=== PATIENT | female | born 1990 | race Caucasian/White ===

== ENCOUNTER 2017-03-05 23:54 | Emergency (ER) | payer OTHER ==
[~2017-03-05] VITALS: Ht 175.3 cm; Wt 81.2 kg
--- NOTE | ~2017-03-05 | CR7 ---
[facility] [place] [facility] TEXT RESULTS PATIENT: LIZETH GUERRERO LOCATION: SED : 90 UNIT #: [id number] AGE: [address]: Antoine Ramirez MD SEX: F ORDER DR: [id number] [address] [address] [id number] E MR#: [id number] Acc #: [id number] NAME: LIZETH GUERRERO. : 1990 SEX: F STUDY DATE/TIME: 03/06/2017 1:09 UNIT: SED ROOM: STUDY DESCRIPTION: CR Abdomen Single AP View Attending Physician: Antoine Ramirez M.D. Ordering Physician: Antoine Ramirez M.D. MEDICAL IMAGING REPORT This report is preliminary unless electronic signature is present. EXAM AP abdomen. Date 03/06/2017. HISTORY 26-year-old female with complaints of abdominal pain which started 2 days ago. Hepatitis C. COMPARISON None. FINDINGS There is mild ascending colonic stool burden. There is moderate gaseous distension of the transverse and splenic flexures of the colon. No abnormal small bowel dilation is seen. Calcified phleboliths are present bilaterally in the pelvis. Intrauterine device is in place. The imaged portion the lung bases appear clear. No acute osseous abnormalities are identified. IMPRESSION 1. Moderate gaseous distension of the transverse and splenic flexures of the colon. Mild ascending colonic stool burden. 2. No evidence of bowel obstruction or acute abdominal abnormality. 3. Intrauterine device in place. Dictated by... Latonya Kincaid M.D. THIS IS AN ELECTRONICALLY VERIFIED REPORT Latonya Kincaid M.D. at 03/06/2017 9:52 PM LLH/gz [facility] A [place] [facility] RADIOLOGY TEXT RESULTS PATIENT: LIZETH GUERRERO LOCATION: SED : 90 UNIT #: [id number] AGE: [address]: Antoine Ramirez MD SEX: F ORDER DR: TD: 03/06/2017 09:59 JOB #: [id number] MEDICAL IMAGING REPORT Page 1 of 1
[~2017-03-05 23:54] MED LIST: ATIVAN2 MG PO; CLEOCIN HCL300 M1 PO; FLEXERIL10 M1 PO; NO MEDICATIONS; PAXIL PO; VOLTAREN75 MG PO; [UNRECOGNIZED DRUG - REMARK]
[2017-03-06] MEDS ORDERED: SEROQUEL100 MG PO (00:18)
[2017-03-06] MEDS ORDERED: VISTARIL PO (00:18)
[2017-03-06 02:03] LABS: URINE SOURCE CLEAN CATCH
[2017-03-06 02:06] LABS: URINE APPEARANCE CLEAR; URINE BILIRUBIN NEG (NEG); URINE BLOOD NEG (NEG); URINE COLOR YELLOW; URINE GLUCOSE NEG (NORM); URINE KETONE NEG (NEG); URINE LEUKOCYTE ESTERASE 1+ (NEG); URINE NITRATE NEG (NEG); URINE PH 5.5 (5-8); URINE PROTEIN NEG (NEG)
[2017-03-06 02:09] LABS: MICRO INDICATED? YES
[2017-03-06 02:10] LABS: URINE BACTERIA 1+ (NEG); URINE MUCUS PRESENT; URINE SQUAMOUS EPITHELIAL CELL FEW /[HPF]; URINE TRANSITIONAL EPI CELLS FEW /[HPF]
== END 2017-03-06 02:54 | disposition home or self-care (01) ==
LOC: SED 23:54
PROVIDERS: Emergency Medicine
DX: R10.84 Generalized abdominal pain (principal); F17.210 Nicotine dependence, cigarettes, uncomplicated; Z79.899 Other long term (current) drug therapy; Z91.048 Other nonmedicinal substance allergy status
CPT/HCPCS: 74000; 81003; 84703; 99284

== ENCOUNTER 2017-03-10 00:15 | Emergency (ER) | payer OTHER ==
[~2017-03-10] VITALS: Ht 175.3 cm; Wt 81.2 kg
--- NOTE | ~2017-03-10 | CT2 ---
[facility] A Service of [facility] & [facility] RADIOLOGY TEXT RESULTS PATIENT: LIZETH GUERRERO LOCATION: [facility] : 90 UNIT #: [id number] AGE: [address]: Angel Luis Pena MD SEX: F ORDER DR: [id number] [facility] [address] [place], [place] [address] [id number] E MR#: [id number] Acc #: [id number] NAME: LIZETH GUERRERO. : 1990 SEX: F STUDY DATE/TIME: 03/10/2017 2:48 UNIT: [facility] ROOM: STUDY DESCRIPTION: CT Abd and Pelv W Cont Attending Physician: Angel Luis Pena M.D. Ordering Physician: Angel Luis Pena M.D. Primary Care Physician: Primary Care Physician No MEDICAL IMAGING REPORT This report is preliminary unless electronic signature is present EXAM CT abdomen and pelvis with contrast 03/10/2017 HISTORY 26-year-old female in the ED complaining of 1-week history of left side chest pain and left side abdomen pain, now worsening. Constipation. History of hepatitis C, IV drug abuse. TECHNIQUE CT examination of the abdomen and pelvis with IV contrast. GI contrast was not ordered. This CT exam was performed with one or more of the following radiation dose reduction techniques: automatic control, adjustment of mA and/or kV according to patient size, and iterative reconstruction. FINDINGS ABDOMEN FINDINGS: The examination shows mild colon wall thickening at the splenic flexure with mild surrounding pericolonic soft tissue stranding. Remaining segments of small bowel and colon are normal in caliber and appearance. The findings suggest potential mild acute colitis. Consider infectious colitis or inflammatory bowel disease. The appendix is normal. Liver, pancreas, spleen and kidneys are normal in size and appearance. Nondistended gallbladder. No bile duct dilatation. Normal-caliber abdominal aorta. PELVIS FINDINGS: Multiple small bilateral ovary cysts, likely physiologic. IUD within the endometrial cavity. Cystic structure in the lower uterine segment may represent a nabothian cyst or some fluid within the endometrial cavity. Urinary bladder and rectum are negative. No inguinal hernia. No mass, adenopathy or fluid collection within the abdomen or pelvis. STS. [facility] A Service of [facility] & [facility] RADIOLOGY TEXT RESULTS PATIENT: LIZETH GUERRERO LOCATION: [facility] : 90 UNIT #: [id number] AGE: [address]: Angel Luis Pena MD SEX: F ORDER DR: IMPRESSION 1. CT findings suggesting potential mild segmental colitis at the splenic flexure as noted above. No evidence of bowel obstruction, abscess or bowel perforation. Consider infectious colitis or inflammatory bowel disease. 2. Remaining segments of small bowel and colon are normal in caliber and appearance, as imaged. No evidence of acute appendicitis. 3. Small bilateral ovary cysts. IUD within the endometrial cavity. Small cystic structure in the lower uterus may represent a benign nabothian cyst or some fluid within the endometrial cavity. Dictated by... Greg Swartz M.D. THIS IS AN ELECTRONICALLY VERIFIED REPORT Greg Swartz M.D. at 03/10/2017 5:59 AM LINDA/erwin TD: 03/10/2017 05:39 JOB #: [id number] MEDICAL IMAGING REPORT Page 1 of 1 COPY
--- NOTE | ~2017-03-10 | EKG ---
PATIENT: LIZETH GUERRERO UNIT #: [id number] Ventricular Rate: 96 BPM Atrial Rate: 96 BPM P-R Interval: 140 ms QRS Duration: 76 ms Q-T Interval: 340 ms QTC Calculation(Bezet): 429 ms P [place]: 71 degrees Calculated R [place]: 67 degrees Calculated T [place]: 63 degrees Diagnosis Line: Normal sinus rhythm Diagnosis Line: Possible Left atrial enlargement Diagnosis Line: Borderline ECG Diagnosis Line: No previous ECGs available Diagnosis Line: Confirmed by AMANDA LÓPEZ MD ([id number]) on Diagnosis Line: 03/10/2017 3:18:22 PM INTERPRETING MD: CHAITANYA
--- NOTE | ~2017-03-10 | CT16 ---
[facility] A Service of [facility] RADIOLOGY TEXT RESULTS PATIENT: LIZETH GUERRERO LOCATION: [facility] : 90 UNIT #: [id number] AGE: [address]: Angel Luis Pena MD SEX: F ORDER DR: [id number] [facility] [address] [place], [place] [address] [id number] E MR#: [id number] Acc #: [id number] NAME: LIZETH GUERRERO. : 1990 SEX: F STUDY DATE/TIME: 03/10/2017 2:48 UNIT: [facility] ROOM: STUDY DESCRIPTION: CT Angio Chest for PE Attending Physician: Angel Luis Pena M.D. Ordering Physician: Angel Luis Pena M.D. Primary Care Physician: Primary Care Physician No MEDICAL IMAGING REPORT This report is preliminary unless electronic signature is present EXAM CT chest with contrast, pulmonary arteriography protocol, 03/10/2017 HISTORY 26-year-old female in the ED complaining of 1-week history of left side chest pain and left side abdomen pain, now worsening. Reported history of hepatitis C and IV drug abuse. TECHNIQUE CT examination of the chest with IV contrast using pulmonary arteriography protocol. CTA MIP images of the pulmonary arteries were reformatted in multiple planes. This CT exam was performed with one or more of the following radiation dose reduction techniques: automatic control, adjustment of mA and/or kV according to patient size, and iterative reconstruction. FINDINGS No pulmonary embolism is demonstrated. Heart size is normal, and there is no pericardial effusion. Normal-caliber thoracic aorta. The lungs are clear. No visible pulmonary infiltrate, pneumothorax or pleural effusion. IMPRESSION Negative chest CT examination using pulmonary arteriography protocol. Dictated by... Greg Swartz M.D. THIS IS AN ELECTRONICALLY VERIFIED REPORT Greg Swartz M.D. at 03/10/2017 5:59 AM RGW/erwin [facility] A Service of [facility] RADIOLOGY TEXT RESULTS PATIENT: LIZETH GUERRERO LOCATION: [facility] : 90 UNIT #: [id number] AGE: [address]: Angel Luis Pena MD SEX: F ORDER DR: TD: 03/10/2017 05:37 JOB #: [id number] MEDICAL IMAGING REPORT Page 1 of 1 COPY
[~2017-03-10 00:15] MED LIST changes: +SEROQUEL100 MG PO; +VISTARIL PO
[2017-03-10 00:54] LABS: URINE SOURCE CLEAN CATCH
[2017-03-10 00:57] LABS: BASOPHIL% 0.2 % (0-2.5); EOSINOPHIL# 0.1 X10e3 (0-0.7); EOSINOPHIL% 0.5 % (0.0-7.0); HEMATOCRIT 40.7 % (35.0-45.0); HEMOGLOBIN 13.9 gm/dL (12.0-16.0); LYMPHOCYTE# 1.7 X10e3 (1.0-3.5); LYMPHOCYTE% 12.9 % (17.0-45.0); MEAN CELL VOLUME 85.5 FL (83-96); MEAN CORPUSCULAR HEMOGLOBIN 29.1 PG (28-34); MEAN CORPUSCULAR HGB CONC 34.1 g/dL (30-36); MEAN PLATELET VOLUME 8.4 FL (6.5-11.5); MONOCYTE# 0.7 X10e3 (0-1.0); MONOCYTE% 5.2 % (3.0-12.0); NEUTROPHIL# 10.5 X10e3 (1.5-7.1); NEUTROPHIL% 81.2 % (40-75); PLATELET COUNT 283 X10e3 (140-420); RED BLOOD COUNT 4.75 X10e (3.90-5.30); RED CELL DISTRIBUTION WIDTH 14.3 % (11.0-15.5); WHITE BLOOD COUNT 12.9 X10e3 (4.0-10.5)
[2017-03-10 01:01] LABS: URINE APPEARANCE CLOUDY; URINE BILIRUBIN NEG (NEG); URINE BLOOD NEG (NEG); URINE COLOR DK YELLOW; URINE GLUCOSE NEG (NEG); URINE KETONE TRACE (NEG); URINE LEUKOCYTE ESTERASE 3+ (NEG); URINE NITRATE NEG (NEG); URINE PH 6.5 (5-8); URINE PROTEIN 1+ (NEG); URINE SPECIFIC GRAVITY 1.025 (1.003-1.035)
[2017-03-10 01:02] LABS: DIFF IND NO
[2017-03-10 01:04] LABS: CULTURE INDICATED? YES; URBCS1 AUWI 0-2 /[HPF] (0-2); URINE BACTERIA AUWI 1+ (NEGATIVE); URINE SQUAMOUS EPITHELIAL CELL OCC /[HPF]; UWBCS1 AUWI 100-200 (0-5)
[2017-03-10 01:18] LABS: POC - CKMB <1.0 ng/mL (0.0-7.9); POC - TROPONIN <0.05 ng/mL (<=0.05)
[2017-03-10 01:19] LABS: ALBUMIN SERUM 3.4 g/dL (3.5-5.0); BILIRUBIN, DIRECT 0.1 mg/dL (0.0-0.2); BILIRUBIN,INDIRECT 0.3 mg/dL (0.0-0.9); BILIRUBIN,TOTAL 0.4 mg/dL (0.2-2.0); BUN/CREATININE RATIO 8.75; CALCIUM SERUM 8.8 mg/dL (8.4-10.2); CREATININE SERUM 0.8 mg/dL (0.6-1.4); GLOM FILT RATE Estimated 101.8 mL/min (>60); POTASSIUM 3.2 mmol/L (3.5-5.1); PROTEIN TOTAL SERUM 7.4 g/dL (6.0-8.3)
[2017-03-13 16:48] LABS: CHLAMYDIA TRACH Detected (Not Detected); N GONOR Detected (Not Detected)
== END 2017-03-10 03:55 | disposition home or self-care (01) ==
LOC: CED 00:15
PROVIDERS: Emergency Medicine
DX: N39.0 Urinary tract infection, site not specified (principal); K52.9 Noninfective gastroenteritis and colitis, unspecified; N72 Inflammatory disease of cervix uteri; R07.9 Chest pain, unspecified; F17.200 Nicotine dependence, unspecified, uncomplicated
CPT/HCPCS: 36415; 71275; 74177; 80048; 80076; 81003; 82553; 83690; 84484; 84703; 85025; 85379; 87086; 87491; 87591; 87808; 87905; 93005; 96365; 96375; 99285; J0696; J1885; Q9967